=== PATIENT | female | born 1960 | race Caucasian/White ===

== ENCOUNTER 2019-03-14 08:09 | Emergency (ER) | payer BC ==
--- NOTE | 2019-03-14 08:16 | Emergency Department Record ---
History of Present Illness - General Chief Complaint: Ankle/Foot Injury Stated Complaint: RT FOOT PAIN Time Seen by Provider: 03/14/19 08:11 Source: Patient Mode of Arrival: Ambulatory Limitations: No limitations - History of Present Illness Initial Comments: 59 yo female presents with right foot pain. She stepped in a hole Vamsi night. She has lateral proximal foot pain. Intact skin. No other injuries. No other complaints. MD Complaint: Foot injury -: Days(s) (2) Injury: Foot: Right Type of Injury: Other (stepped in a hole) Place: Home Severity: Mild Improves With: Immobilization Worsens With: Movement, Weight bearing Context: Walking Associated Symptoms: Able to partially bear weight - Related Data Home Medications Medication Instructions Recorded Confirmed Last Taken Bupropion HCl [Wellbutrin Xl] 150 mg PO DAILY 03/14/19 03/14/19 03/14/19 Dextroamphetamine/Amphetamine 30 mg PO DAILY 03/14/19 03/14/19 03/14/19 [Adderall] Allergies Allergy/AdvReac Type Severity Reaction Status Date / Time Sulfa (Sulfonamide AdvReac HEADACHE Verified 03/14/19 08:16 Antibiotics) Review of Systems Constitutional: Denies: Chills, Fever, Malaise, Weight change Eyes: Denies: Eye discharge ENT: Denies: Congestion, Throat pain Respiratory: Denies: Cough Cardiovascular: Denies: Chest pain, Palpitations, Syncope Endocrine: Denies: Fatigue Gastrointestinal: Denies: Abdominal pain, Diarrhea, Nausea, Vomiting Genitourinary: Denies: Dysuria, Frequency, Urgency Musculoskeletal: Reports: As per HPI, Arthralgia, Joint swelling, Myalgia Skin: Reports: As per HPI, Bruising. Denies: Rash (resolved recent shingles) Neurological: Denies: Numbness, Tingling Psychiatric: Denies: Anxiety Hematological/Lymphatic: Denies: Easy bleeding, Easy bruising Physical Exam - General General Appearance: Alert, Oriented x3, Cooperative, No acute distress Limitations: No limitations - Head Head exam: Atraumatic - Eye Eye exam: Normal appearance - ENT ENT exam: Normal exam Ear exam: Normal external inspection Nasal Exam: Normal inspection Mouth exam: Normal external inspection - Neck Neck exam: Normal inspection - Respiratory Respiratory exam: Normal lung sounds bilaterally. negative: Respiratory distress - Cardiovascular Cardiovascular Exam: Regular rate, Normal rhythm, Normal heart sounds Peripheral Pulses: 2+: Dorsalis Pedis (R) - Extremities Extremities exam: Full ROM, Normal capillary refill, Tenderness. negative: Normal inspection, Calf tenderness, Pedal edema Image of Feet: 1 - slight bruising, tender, intact skin - Neurological Neurological exam: Alert, Oriented X3 - Psychiatric Psychiatric exam: Normal affect, Normal mood - Skin Skin exam: Dry, Intact, Normal color, Warm Course - Reevaluation(s) Reevaluation #1: 03/14/19 09:08 The XR demonstrates a questionable 5th proximal phalanx fracture Given her pain level she will be place in a boot with instructions for close follow up Disposition Disposition: Discharge Clinical Impression: Foot sprain Qualifiers: Encounter type: initial encounter Laterality: right Qualified Code(s): S93.601A - Unspecified sprain of right foot, initial encounter Toe fracture, right Qualifiers: Encounter type: initial encounter Toe: unspecified toe Fracture type: closed Disposition: Home, Self-Care Condition: (1) Good Instructions: Foot Sprain (ED) Additional Instructions: Call your doctor for the next available follow up appointment in the next 7-10 days of pain continues to rule out a small unseen break or other injuries Review this ER visit and the tests performed with your family doctor Use the boot the next two weeks or until pain is control. Forms: Patient Portal Access Time of Disposition: 09:08 Quality - Quality Measures Quality Measures: N/A - Blood Pressure Screening Does Patient Have Any of the Following: No Blood Pressure Classification: Hypertensive Reading Systolic Measurement: 148 Diastolic Measurement: 91 Screening for High Blood Pressure: < Pre-Hypertensive BP, F/U Documented > [[id number]] Pre-Hypertensive Follow-up Interventions: Referral to alternative/primary care provider.
--- NOTE | 2019-03-15 07:53 | RADIOLOGY REPORT ---
EXAM: RIGHT FOOT, THREE VIEWS HISTORY: PATIENT HAS HISTORY OF INJURY TO THE RIGHT FOOT. TECHNIQUE: Three views of the right foot are provided without comparison examinations. FINDINGS: There is soft tissue swelling identified at the fifth metatarsal phalangeal joint. There is questionable cortical irregularity at the proximal metaphysis of the proximal right fifth phalanx. This finding may represent a nondisplaced fracture. If there is further clinical concern then an MRI of the right foot can be obtained for further evaluation. No radiopaque foreign bodies are identified. IMPRESSION: QUESTIONABLE CORTICAL IRREGULARITY IDENTIFIED AT THE PROXIMAL METAPHYSIS OF THE PROXIMAL RIGHT FIFTH PHALANX WHICH MAY REPRESENT A NONDISPLACED FRACTURE. IF THERE IS FURTHER CLINICAL CONCERN THEN MRI OF THE RIGHT FOOT CAN BE OBTAINED FOR FURTHER EVALUATION. JOB NUMBER: [id number] [facility]
== END 2019-03-14 09:23 | disposition home or self-care (01) ==
LOC: ER 08:09
DX: S93.601A Unspecified sprain of right foot, initial encounter (principal); S92.502A Displaced unspecified fracture of left lesser toe(s), initial encounter for closed fracture; X50.0XXA Overexertion from strenuous movement or load, initial encounter; Y92.007 Garden or yard of unspecified non-institutional (private) residence as the place of occurrence of the external cause
CPT/HCPCS: 99283